=== PATIENT | female | born 1985 | race American Indian/Alaskan Native ===

== ENCOUNTER 2017-06-23 14:13 | Emergency (ER) | payer SELFPAY ==
[2017-06-23 14:39] VITALS: BP 106/52
== END 2017-06-23 21:45 | disposition left against medical advice (07) ==
LOC: ED 14:13
DX: Z53.21 Procedure and treatment not carried out due to patient leaving prior to being seen by health care provider (principal)

== ENCOUNTER 2017-07-28 17:25 | Emergency (ER) | payer SELFPAY | END 2017-07-28 17:40 | disposition left against medical advice (07) | LOC: ED 17:25 | DX: R51 Headache (principal); R42 Dizziness and giddiness; Z53.21 Procedure and treatment not carried out due to patient leaving prior to being seen by health care provider ==

== ENCOUNTER 2017-12-27 16:04 | Emergency (ER) | payer MEDICAID ==
[2017-12-27 17:27] VITALS: BP 128/78
[2017-12-27 18:16] LABS: Eosinophils # (Auto) 0.1 K/mm3 (0.0-0.4); Eosinophils % (Auto) 1.8 % (0.0-4.3); Hematocrit 43.9 % (30.3-42.9); Hemoglobin 14.2 gm/dl (10.1-14.3); Lymphocytes # (Auto) 1.2 K/mm3 (1.2-5.4); Mean Corpuscular HGB Conc 32 % (30-34); Mean Corpuscular Hemoglobin 28 pg (28-32); Mean Corpuscular Volume 87 fl (79-97); Monocytes # (Auto) 0.5 K/mm3 (0.0-0.8); Monocytes % (Auto) 12.5 % (0.0-7.3); Platelet Count 253 K/mm3 (140-440); Red Blood Count 5.06 M/mm3 (3.65-5.03); Red Cell Distribution Width 14.4 % (13.2-15.2)
[2017-12-27 18:28] LABS: BUN/Creatinine Ratio 10; Blood Urea Nitrogen 9 mg/dL (7-17); Calcium 9.3 mg/dL (8.4-10.2); Hemolysis Index 10
== END 2017-12-27 19:30 | disposition left against medical advice (07) ==
LOC: ED 16:04
DX: R07.89 Other chest pain (principal); M54.6 Pain in thoracic spine; F17.200 Nicotine dependence, unspecified, uncomplicated; Z53.21 Procedure and treatment not carried out due to patient leaving prior to being seen by health care provider
CPT/HCPCS: 36415; 80048; 84484; 84703; 85025; 93005; 93010

== ENCOUNTER 2017-12-30 13:23 | Emergency (ER) | payer MEDICAID ==
[2017-12-30 14:05] VITALS: BP 117/78
--- NOTE | 2017-12-30 16:23 | Emergency Department Report ---
Chief Complaint: Eye Problems Stated Complaint: BLURRED VISION Time Seen by Provider: 12/30/17 16:15 - HPI History of Present Illness: Patient is 32-year-old female who is presenting with blurry vision for approximately 1 month or more. Patient's is trying to see someone about her vision for the last several days but states she is unable to get anybody to give her an appointment. In further questioning patient is tremulous outside [facility] as an appointment to see them in several days and also [facility] and [facility]. Patient does not sound like she started getting in touch with her flute grinder. Patient has a minor headache from eyestrain. There's been no nausea vomiting diarrhea next stiffness. - ROS Review of Systems: All systems reviewed and are negative - Exam Vital Signs: Vital Signs 12/30/17 14:01 Temperature 97.9 F Pulse Rate 82 Respiratory 20 Rate Blood Pressure 117/78 O2 Sat by Pulse 100 Oximetry Physical Exam: He has a stye in the left lower eyelid there is been there for approximately a year according to the patient. Patient's pupils are equal and reactive to light X ocular movements are intact and appears normal grossly. MSE screening note: Focused history and physical exam performed. Due to findings the following was ordered: ED Medical Decision Making - Medical Decision Making Is a nonmedical emergency and has opted to palpate $150 co-pay at this time. Patient is being given referral to flute grinder. ED Disposition for MSE Clinical Impression: Blurry vision Disposition: Z-07 MED SCREENING EXAM-LEFT Is pt being admited?: No Does the pt Need Aspirin: No Condition: Stable Additional Instructions: Type of that she needs to see his flute grinder. I will suggest starting with [facility] or [facility]. They usually have optometry office with a physician present daily. He also may want to try [facility] or looking up her local flute grinder. Oftentimes these types of eye doctors do have walk-in appointments. Referrals: PRIMARY CARE,MD [Primary Care Provider] - 3-5 Days
== END 2017-12-30 17:56 | disposition left against medical advice (07) ==
LOC: ED 13:23
DX: H53.8 Other visual disturbances (principal); Z53.21 Procedure and treatment not carried out due to patient leaving prior to being seen by health care provider

== ENCOUNTER 2020-06-10 13:44 | Emergency (ER) | payer MEDICAID ==
[2020-06-10 14:36] VITALS: BP 121/50
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
== END 2020-06-10 16:21 | disposition home or self-care (01) ==
LOC: ED 13:44
DX: M79.18 Myalgia, other site (principal); Z79.899 Other long term (current) drug therapy; V49.59XA Passenger injured in collision with other motor vehicles in traffic accident, initial encounter; Y92.410 Unspecified street and highway as the place of occurrence of the external cause; Y93.89 Activity, other specified; Y99.8 Other external cause status
CPT/HCPCS: 99282

== ENCOUNTER 2020-06-12 23:36 | Emergency (ER) | payer MEDICAID ==
[2020-06-13 00:22] VITALS: BP 102/46
[2020-06-13] MEDS ORDERED: dexAMETHasone 20 MG/5 ML VIAL IM ONE (01:41)
[2020-06-13] MEDS ORDERED: diphenhydrAMINE 25 MG CAP PO ONE (01:41)
[2020-06-13] MEDS ORDERED: ACETAMINOPHEN 500 MG TAB PO ONE (01:41)
[2020-06-13] MEDS ORDERED: METOCLOPRAMIDE 10 MG TAB PO ONE (01:41)
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
== END 2020-06-13 03:10 | disposition home or self-care (01) ==
LOC: ED 23:36
DX: S09.90XA Unspecified injury of head, initial encounter (principal); Z79.1 Long term (current) use of non-steroidal anti-inflammatories (NSAID); Z79.899 Other long term (current) drug therapy; V47.6XXA Car passenger injured in collision with fixed or stationary object in traffic accident, initial encounter; Y93.89 Activity, other specified; Y92.410 Unspecified street and highway as the place of occurrence of the external cause; Y99.8 Other external cause status
CPT/HCPCS: 70450; 96372; 99283; J1100

== ENCOUNTER 2021-09-21 01:12 | Emergency (ER) | payer MEDICAID ==
[2021-09-21] MEDS ORDERED: KETOROLAC 10 MG TAB PO ONE (08:08)
[2021-09-21] MEDS ORDERED: CYCLOBENZAPRINE 10 MG TAB PO ONE (08:08)
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
[2021-09-21 09:44] VITALS: BP 118/55
== END 2021-09-21 09:45 | disposition home or self-care (01) ==
LOC: ED 01:12
DX: M54.50 Low back pain, unspecified (principal); M54.2 Cervicalgia; R51.9 Headache, unspecified; V49.9XXA Car occupant (driver) (passenger) injured in unspecified traffic accident, initial encounter; Y93.89 Activity, other specified; Y92.89 Other specified places as the place of occurrence of the external cause; Y99.9 Unspecified external cause status
CPT/HCPCS: 70450; 72125; 99283

== ENCOUNTER 2021-12-24 23:17 | Emergency (ER) | payer MEDICAID | END 2021-12-24 23:30 | disposition left against medical advice (07) | LOC: ED 23:17 | DX: R10.9 Unspecified abdominal pain (principal); Z53.21 Procedure and treatment not carried out due to patient leaving prior to being seen by health care provider ==